=== PATIENT | male | born 1995 | race Hispanic/Latino ===

== ENCOUNTER 2016-10-28 04:19 | Emergency (ER) | payer SELFPAY ==
[~2016-10-28] VITALS: Ht 175.3 cm; Wt 68.0 kg
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
[2016-10-28] MEDS ORDERED: LIDOCAINE 2% 20 ML (XYLOCAINE) VIAL ONE ×2 (04:48→04:51)
[2016-10-28] MEDS ORDERED: SULF1TAB35 PO (05:16)
[2016-10-28 05:28] VITALS: BP 148/90
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
== END 2016-10-28 05:28 ==
LOC: EDUNIT# 04:19 → ER 04:20
DX: S06.9X1A Unspecified intracranial injury with loss of consciousness of 30 minutes or less, initial encounter (principal); S01.01XA Laceration without foreign body of scalp, initial encounter; S50.11XA Contusion of right forearm, initial encounter; F10.10 Alcohol abuse, uncomplicated; F12.90 Cannabis use, unspecified, uncomplicated; F15.90 Other stimulant use, unspecified, uncomplicated; F17.210 Nicotine dependence, cigarettes, uncomplicated; Y00.XXXA Assault by blunt object, initial encounter
CPT/HCPCS: 70450; 70486; 72125; 73080

== ENCOUNTER → 2023-01-19 | Outpatient (CLI) | payer BC ==
[~2023-01-19] MED LIST: SULF1TAB38 PO
--- NOTE | 2023-01-19 11:00 | Diagnostic Imaging Report ---
EXAMINATION: Magnetic resonance imaging of the right knee without intravenous contrast DATE: January 19, 2023. COMPARISON: None. INDICATION: 27-year-old male, osteochondritis desiccans. Right knee pain. TECHNIQUE: Multiplanar, multisequence non contrast enhanced MR imaging was accomplished. FINDINGS: MENISCI: The medial meniscus is intact. The lateral meniscus is discoid. There is a longitudinal horizontal type tear of the anterior horn, body, posterior horn of the lateral meniscus. LIGAMENTS AND TENDONS: The anterior and posterior cruciate ligaments are intact. The medial collateral ligament is intact. The iliotibial band, mid third lateral capsular ligament, fibular collateral ligament, biceps femoris tendon and conjoined tendon are intact. The quadriceps tendon and patella ligament are intact. JOINT: There is an osteochondral lesion involving the lateral aspect of the medial femoral condyle in its mid weightbearing aspect measuring 17 x 13 mm in size. There is very mild irregularity of the articulating surface at this location. There is an incomplete cleft of fluid underlying the osteochondral lesion at its anterior aspect best demonstrated on sagittal PD fat saturation sequence image 12. There is ill-defined marrow edema underlying the osteochondral lesion. There is no underlying cystic change. There is no otherwise identified cartilage defect. There is no knee joint effusion, prominent synovitis, or identified intra-articular body. BONE: There is the osteochondral lesion of the medial femoral condyle as described above. Additional bone marrow signal assessment is unremarkable. BURSAE AND SOFT TISSUES: There is no Ba's cyst. IMPRESSION: 1. Osteochondral lesion of the lateral aspect of the medial femoral condyle involving its mid weightbearing aspect measuring 17 x 13 mm in size with findings concerning for the osteochondral lesion being loose. No intra-articular body, prominent synovitis, or sizable knee joint effusion. 2. Discoid lateral meniscus with longitudinal horizontal type tear of the anterior horn, body, and posterior horn of the lateral meniscus. 3. Intact medial meniscus. 4. Intact cruciate ligaments. Additional ligaments and tendons are intact. Dictated by: Dictated on workstation # [id number]
== END ==
LOC: RAD 09:27
PROVIDERS: ATTEND Nurse Practitioner
DX: S83.281A Other tear of lateral meniscus, current injury, right knee, initial encounter (principal); M93.261 Osteochondritis dissecans, right knee; X58.XXXA Exposure to other specified factors, initial encounter
CPT/HCPCS: 73721